=== PATIENT | male | born 1945 | race Hispanic/Latino ===

== ENCOUNTER 2024-08-03 07:18 | Day surgery (SDC) | payer MEDICARE ==
[2024-08-01 14:43] VITALS: BP 155/77; PULSE 59; RESP 18; TEMP 97.8
[2024-08-01 15:03] LABS: BASOPHILS # (AUTO) 0.03 K/uL (0.00-0.20); BASOPHILS % (AUTO) 0.5 % (0.0-5.0); EOSINOPHILS # (AUTO) 0.12 K/uL (0.00-0.70); EOSINOPHILS % (AUTO) 1.8 % (0.0-8.0); HEMATOCRIT 40.5 % (42-54); IMMATURE GRANULOCYTE ABSOLUTE 0.01 K/uL (0-1); LYMPHOCYTES # (AUTO) 1.9 K/uL (1.0-4.8); LYMPHOCYTES % (AUTO) 28.7 % (21.0-51.0); MEAN CORPUSCULAR HGB CONC 32.8 g/dL (32.0-36.0); MEAN CORPUSCULAR VOLUME 94.4 fL (79-99); MONOCYTES # (AUTO) 0.6 K/uL (0.1-1.0); MONOCYTES % (AUTO) 8.5 % (3.0-13.0); NEUTROPHILS # (AUTO) 3.9 K/uL (1.8-7.7); NEUTROPHILS % (AUTO) 60.3 % (40.0-77.0); PLATELET COUNT (AUTO) 161 K/uL (130-400); RED BLOOD CELL COUNT(AUTO) 4.29 MIL/uL (4.50-6.20); RED CELL DISTRIBUTION WIDTH 13.1 % (11.0-15.5); WHITE BLOOD COUNT (AUTO) 6.5 K/uL (4.8-10.8)
[2024-08-01 15:34] LABS: CREATININE 1.3 mg/dL (0.5-1.3); POTASSIUM 4.3 mmol/L (3.5-5.1)
[2024-08-02] MEDS: cefTRIAXone 1G VIAL IVPB SCH (21:30)
[2024-08-03] VITALS (17 sets, daily range): BP systolic 121–166; BP diastolic 72–84; PULSE 46–58; RESP 10–20; TEMP 96.6–97
[~2024-08-03] VITALS: Ht 162.6 cm; Wt 64.4 kg
[~2024-08-03 07:18] MED LIST: AEC81 PO; ATOR10 PO; COMB5OS OU; DORZ10DR19 OU; EZET10TA48 PO; INSU200I SQ; INSU300I SQ; KRIL1CAP29 PO; LEVE500T19 PO; METO-408 PO; PYRI100T10 PO; RAMI5CAP72 PO; cascara sagrada PO
[2024-08-03] MEDS: 0.9%NACL 1000ML 1,000 ML IV ONE (08:01)
[2024-08-03] MEDS: cefTRIAXone 1G VIAL ONE (08:01)
[2024-08-03] MEDS ORDERED: LATA2.5D14 OP (08:43)
[2024-08-03] MEDS ORDERED: FAMO40TA7 PO (08:43)
[2024-08-03] MEDS ORDERED: ROSU20TA73 PO (08:43)
[2024-08-03] MEDS ORDERED: RIVA2.5T PO (08:43)
[2024-08-03] MEDS ORDERED: ISOS30TA92 PO (08:43)
[2024-08-03] MEDS ORDERED: INSU100I3 SQ (08:43)
[2024-08-03] MEDS ORDERED: MIDAZOLAM HCL 1 MG/ML 2ML VIAL ONE (10:18)
[2024-08-03] MEDS ORDERED: FENTanyl CITRate PF 50 MCG/1 ML 2ML VIAL ONE ×2 (10:19→11:15)
[2024-08-03] MEDS ORDERED: proPOFol 10 MG/ML 20ML VIAL IV ONE (10:19)
[2024-08-03] MEDS ORDERED: rocuRONium bROMide 10MG/1ML 5ML VL ONE (10:35)
[2024-08-03] MEDS ORDERED: ondanSETRON 4MG INJ ONE (10:45)
[2024-08-03] MEDS ORDERED: NEOSTIGMINE METHYLSULFATE 1MG/ML IV ONE (11:14)
[2024-08-03] MEDS ORDERED: GLYCOPYRROLATE 0.2 MG/ML 5 ML VIAL ONE (11:14)
[2024-08-03] MEDS: MEPERIDINE-PF 25 MG/ML SYG ONE (12:03)
[2024-08-03] MEDS: ondanSETRON 4MG INJ ONE (12:03)
[2024-08-03] MEDS: acetaMINOPHEN 1,000 MG/100 ML VIAL IV ONE (12:04)
[2024-08-03] MEDS ORDERED: PHENAZOpyridine HCL 200 MG TAB 200 MG TABLET PO ONE (13:00)
== END 2024-08-03 13:30 | disposition home or self-care (01) ==
LOC: DAH 07:18
PROVIDERS: ATTEND Urology
DX: C67.4 Malignant neoplasm of posterior wall of bladder (principal); R31.0 Gross hematuria; I25.10 Atherosclerotic heart disease of native coronary artery without angina pectoris; K21.9 Gastro-esophageal reflux disease without esophagitis; Z95.1 Presence of aortocoronary bypass graft; I12.9 Hypertensive chronic kidney disease with stage 1 through stage 4 chronic kidney disease, or unspecified chronic kidney disease; E11.22 Type 2 diabetes mellitus with diabetic chronic kidney disease; N18.9 Chronic kidney disease, unspecified; Z79.01 Long term (current) use of anticoagulants; Z79.899 Other long term (current) drug therapy
CPT/HCPCS: 80048; 85025; 36415; 93005; 52240; 82948 ×2; 88305; 88307; J7030 ×2; A4344; J3010 ×2; J3490 ×2; J0696; J2250; J2704; J2405 ×2; J2710; J2175; A4358; A4215; A4223; A4213; A4222; A4221; A4663; A4510; A4600

== ENCOUNTER 2024-09-21 07:46 | Day surgery (SDC) | payer MEDICARE ==
--- NOTE | 2024-09-19 13:12 | EKG ---
[facility] Test Date: 2024-09-19 Test Time: 13:56:57 Pat Name: TALI SEAY Department: [facility] Room: Gender: M Pulp Mixer: [id number] : 1945 Requested By: PHYLICIA MADDOX Order Number: [id number] Reading MD: Jose Manuel Vang Measurements Intervals [place] Rate: 53 P: 65 DE: 187 QRS: -40 QRSD: 93 T: 81 QT: 455 QTc: 426 Interpretive Statements Sinus rhythm Left axis deviation Nonspecific T abnormalities, lateral leads Compared to ECG 08/01/2024 14:26:10 Left-axis deviation now present T-wave abnormality now present Myocardial infarct finding no longer present Electronically Signed On 09-20-2024 18:35:02 MUFFLE OPERATOR by Jose Manuel Vang Please click the below link to view image of tracing.
[2024-09-19 13:15] LABS: BASOPHILS # (AUTO) 0.02 K/uL (0.00-0.20); BASOPHILS % (AUTO) 0.3 % (0.0-5.0); EOSINOPHILS # (AUTO) 0.15 K/uL (0.00-0.70); EOSINOPHILS % (AUTO) 2.1 % (0.0-8.0); HEMATOCRIT 40.8 % (42-54); IMMATURE GRANULOCYTE ABSOLUTE 0.02 K/uL (0-1); LYMPHOCYTES # (AUTO) 1.9 K/uL (1.0-4.8); LYMPHOCYTES % (AUTO) 27.1 % (21.0-51.0); MEAN CORPUSCULAR HEMOGLOBIN 30.5 pg (27.0-33.0); MEAN CORPUSCULAR HGB CONC 33.3 g/dL (32.0-36.0); MEAN CORPUSCULAR VOLUME 91.5 fL (79-99); MONOCYTES # (AUTO) 0.5 K/uL (0.1-1.0); MONOCYTES % (AUTO) 7.5 % (3.0-13.0); NEUTROPHILS # (AUTO) 4.5 K/uL (1.8-7.7); NEUTROPHILS % (AUTO) 62.7 % (40.0-77.0); PLATELET COUNT (AUTO) 174 K/uL (130-400); RED BLOOD CELL COUNT(AUTO) 4.46 MIL/uL (4.50-6.20); RED CELL DISTRIBUTION WIDTH 13.2 % (11.0-15.5); WHITE BLOOD COUNT (AUTO) 7.2 K/uL (4.8-10.8)
[2024-09-19 13:22] LABS: CREATININE 1.2 mg/dL (0.5-1.3); POTASSIUM 4.6 mmol/L (3.5-5.1)
[2024-09-19 13:30] LABS: INR 1.13 (0.85-1.15); PROTHROMBIN TIME 12.1 SEC (9.6-11.6)
[2024-09-19 13:31] LABS: PARTIAL THROMBOPLASTIN TIME 26.6 SEC (26.3-35.5)
[2024-09-19 13:43] VITALS: BP 140/68; PULSE 57; RESP 18; TEMP 98.1
--- NOTE | 2024-09-20 09:01 | NUR ---
RE: EKG REPORTED EKG RESULTS TO DR COOL, NO NEW ORDERS RECEIVED.
[2024-09-21] VITALS (19 sets, daily range): BP systolic 103–163; BP diastolic 66–93; PULSE 54–83; RESP 15–17; TEMP 96.6–97.3
[~2024-09-21] VITALS: Ht 162.6 cm; Wt 61.2 kg
[~2024-09-21 07:46] MED LIST changes: -AEC81 PO; -ATOR10 PO; +CASCARA SAGRADA PO; -COMB5OS OU; -DORZ10DR19 OU; -EZET10TA48 PO; +FENTanyl CITRate PF 50 MCG/1 ML 2ML VIAL ONE; +GLYCOPYRROLATE 0.2 MG/ML 5 ML VIAL ONE; +INSU100I3 SQ; -INSU200I SQ; +ISOS30TA92 PO; -KRIL1CAP29 PO; -LEVE500T19 PO; +LIDOCAINE HCL MPF 1% 5ML VIAL ONE; -METO-408 PO; +MIDAZOLAM HCL 1 MG/ML 2ML VIAL ONE; +NEOSTIGMINE METHYLSULFATE 1MG/ML IV ONE; -PYRI100T10 PO; +RIVA2.5T PO; +ROSU20TA98 PO; -cascara sagrada PO; +dexaMETHasone SOD PHOSPHATE 10MG/ML 1ML VIAL ONE; +ondanSETRON 4MG INJ ONE; +phenylEPHRINE HCL 10 MG/ML 1ML VIAL IV ONE; +proPOFol 10 MG/ML 20ML VIAL IV ONE; +rocuRONium bROMide 10MG/1ML 5ML VL ONE
[2024-09-21] MEDS ORDERED: SUCCINYLCHOLINE CHLORIDE 20 MG/ML 10 ML VIAL ONE (08:17)
[2024-09-21] MEDS ORDERED: ketaMINE 50MG/ML SYRINGE 50 MG/ML DISP.SYRIN ONE (08:20)
[2024-09-21] MEDS: 0.9%NACL 1000ML 1,000 ML IV ONE (08:26)
[2024-09-21] MEDS: cefTRIAXone 1G VIAL ONE (08:28)
[2024-09-21] MEDS: PHENAZOpyridine HCL 200 MG TAB 200 MG TABLET PO ONE (12:13)
--- NOTE | 2024-09-21 12:33 | NUR ---
Patient aox4. Denies c/o pain or discomfort. Voiced understanding to TURP/Cystoscopy/Elder Catheter precautions and follow up expectations. Ambulated to bathroom with standby assist. Voided large amount of clear urine. PIV discontinued with catheter tip intact. Full and complete Discharge instructions given to Patient and . All questions answered. W/C to POV with to Home.
--- NOTE | 2024-09-24 13:26 | OP ---
DATE OF PROCEDURE: 09/21/2024 PREOPERATIVE DIAGNOSIS: Bladder cancer. POSTOPERATIVE DIAGNOSIS: Bladder cancer. PROCEDURE PERFORMED: Cystourethroscopy, transurethral resection bladder tumor (re-resection) and instillation of mitomycin C. ANESTHESIA: General endotracheal anesthesia. SURGEON: Jo-Ann Nickerson MD PREOPERATIVE INDICATIONS: This is an 79-year-old male with multiple medical problems. He underwent a robotic-assisted laparoscopic prostatectomy in 2017 and his most recent PSA was less than 0.006 or undetectable. More recently, the patient developed gross hematuria and the workup revealed a bladder tumor with posterior bladder wall. This was noted to be non-muscle invasive, but high-grade. He is now here for re-resection of that tumor site and other areas with instillation or to be followed by instillation of intravesical mitomycin C. Preoperatively the patient received Rocephin 1 g intravenously. His preoperative creatinine was 1.2 with a glomerular filtration rate of 61. DESCRIPTION OF PROCEDURE: The patient was brought to the operating room and placed in the supine position. Following adequate general endotracheal anesthesia, he was sterilely draped and prepped in the usual fashion in the dorsal lithotomy position. MABLE hose and Venodyne stockings were placed on his lower extremities bilaterally and all pressure points were padded. A 22-[place] cystoscopic sheath with 30-degree angle lens in place was positioned per urethra and negotiated into the bladder. The pendulous urethra was without strictures. The prostatic urethra was surgically absent. The bladder itself had some shaggy areas at the prior resection site. The rest of the bladder did not appear to have any significant abnormalities. He did have what appeared to be early growth of a papillary tumor at the left trigone inferior to the left ureteral orifice. Following this, these areas were resected and a cold cup biopsy forceps was used to get deep muscle biopsies of the prior tumor base and circumferentially around the edges. A rollerball mechanism was then used with the resectoscope sheath to fulgurate all areas of re-resection and deep muscle biopsies. Additionally, any area that appeared erythematous was also fulgurated. Following this, copious irrigation was performed and an 18-[place] Elder catheter was inserted. Mitomycin 40 mg of was then instilled under gravity and the catheter was doubly clamped. This dwell time will be one hour at which point the bladder will be drained and the contents discarded in a biohazard bag. A new drainage bag will be attached. The patient will be discharged home with prescriptions for Keflex and Pyridium. He is to follow up in the office on Wednesday 09/26 for Elder catheter removal. The specimens were sent to pathology for review in separately labeled specimen containers. They were labeled left posterior bladder wall, left trigone, again inferior to the left ureteral orifice, and left lateral bladder wall. All this was discussed with the patient's . TID: [id number] RECEIPT: [id number]
== END 2024-09-21 12:35 | disposition home or self-care (01) ==
LOC: DAH 07:46
PROVIDERS: ATTEND Urology
DX: C67.9 Malignant neoplasm of bladder, unspecified (principal); N30.21 Other chronic cystitis with hematuria; N30.01 Acute cystitis with hematuria; I25.10 Atherosclerotic heart disease of native coronary artery without angina pectoris; I12.9 Hypertensive chronic kidney disease with stage 1 through stage 4 chronic kidney disease, or unspecified chronic kidney disease; E11.22 Type 2 diabetes mellitus with diabetic chronic kidney disease; N18.9 Chronic kidney disease, unspecified; Z95.1 Presence of aortocoronary bypass graft; Z79.01 Long term (current) use of anticoagulants; Z79.899 Other long term (current) drug therapy
CPT/HCPCS: 80048; 85025; 85610; 85730; 36415; 93005; 52204; 51720; 82948 ×2; 88305; A6260; A4344; A4354; J3010; J1100; J0330; J7030; J3490 ×4; J0696; J2250; J2704; J2405; J2710; J2371; J9280; A4358; A4215; A4223; A4213; A4222; A4221; A4663; A4510; A4600